=== PATIENT | female | born 1965 | race Caucasian/White ===

== ENCOUNTER 2017-05-08 14:22 | Emergency (ER) | payer SELFPAY ==
[~2017-05-08] VITALS: Ht 172.7 cm; Wt 70.0 kg
[2017-05-08 15:13] VITALS: BP 105/51; PULSE 95; RESP 22; TEMP 98.1; O2SAT 100
[2017-05-08 16:06] LABS: BASOPHIL % 0.1 % (0.0-2.0); HEMATOCRIT 37.8 % (35.0-46.0); HEMOGLOBIN 12.8 GM/DL (11.6-15.3); LYMPH % 4.1 % (9.0-44.0); LYMPHOCYTE # 0.6 TH/MM3 (1.0-4.8); MEAN CELL VOLUME 82.2 FL (80.0-100.0); MEAN CORPUSCULAR HEMOGLOBIN 27.8 PG (27.0-34.0); MEAN CORPUSCULAR HGB CONC 33.8 % (32.0-36.0); MEAN PLATELET VOLUME 8.8 FL (7.0-11.0); MONOCYTE # 0.9 TH/MM3 (0-0.9); NEUT % 89.8 % (16.0-70.0); PLATELET COUNT 197 TH/MM3 (150-450); RED CELL DISTRIBUTION WIDTH 13.7 % (11.6-17.2); WHITE BLOOD COUNT 15.6 TH/MM3 (4.0-11.0)
[2017-05-08 16:13] LABS: PROTHROMBIN TIME - PATIENT 10.5 SEC (9.8-11.6)
[2017-05-08 16:14] LABS: BICARBONATE 27.1 MEQ/L (21.0-32.0); CREATININE 0.81 MG/DL (0.50-1.00)
--- NOTE | 2017-05-08 16:26 | RADRPT ---
EXAM DATE/TIME: 05/08/2017 15:41 [facility] COMPARISON: No previous studies available for comparison. INDICATIONS : Left leg pain. MEDICAL HISTORY : None. SURGICAL HISTORY : None. ENCOUNTER: Initial ACUITY: 1 week PAIN SCORE: 6/10 LOCATION: Left leg. TECHNIQUE: Venous ultrasound of the leg was performed from the inguinal ligament to the proximal calf. Real-jose e, color Doppler and spectral tracing, compression and augmentation techniques were used. FINDINGS: There is normal compressibility of the deep venous system from the inguinal region to the proximal ca lf. No echogenic clot is seen in the lumen of the common femoral, femoral, popliteal, and posterior tibial veins. There is a normal response of the venous system to proximal and distal augmentation an d respiration. CONCLUSION: No evidence of left lower extremity DVT. Roldan Morgan MD on May 08, 2017 at 16:25 Board Certified Radiologist. This report was verified electronically.
[2017-05-08] MEDS ORDERED: SODIUM CHLORIDE 0.9% FLUSH 10 ML FLUSH IV FLUSH PRN (18:15)
[2017-05-08] MEDS ORDERED: ceFAZolin 2 GM PREMIX 50 ML IV ONE (18:15)
[2017-05-08] MEDS ORDERED: MORPHINE SULFATE 4 MG/ML INJ IV PUSH ONE (18:15)
--- NOTE | 2017-05-08 18:17 | PD ---
HPI Chief Complaint: Injury Time Seen by Provider: 17:33 Travel History International Travel<30 days: No Contact w/Intl Traveler<30days: No Traveled to known affect area: No History of Present Illness HPI 51-year-old female presents emergency department with painful red left knee which has progressed over the past 2 days. Patient denies significant injury, but states he bumped it perhaps 2 days ago. Patient has history of injury to the left knee years ago requiring open reduction and fixation with screws still present. Patient is unable to ambulate on the joint at this time. She denies significant fever or chills. Patient's pain is 9 out of 10. It is worse with any movement or ambulation. Patient denies any drug allergies. PFSH Past Medical History ?: Not Menopausal: Yes Social History Alcohol Use: No Tobacco Use: No Allergies-Medications (Allergen,Severity, Reaction): Coded Allergies: No Known Allergies (Verified Allergy, Severe, 05/08/17) Uncoded Allergies: NKA (Allergy, Unknown, 11/07/02) RN (Allergy, Unknown, 11/07/02) Reported Meds & Prescriptions Reported Meds & Active Scripts Active No Active Prescriptions or Reported Medications Review of Systems Except as stated in HPI: all other systems reviewed are Neg General / Constitutional: No: Fever, Chills Eyes: No: Visual changes HENT: No: Headaches Cardiovascular: No: Chest Pain or Discomfort Respiratory: No: Shortness of Breath Gastrointestinal: No: Abdominal Pain Genitourinary: No: Dysuria Musculoskeletal: Positive: Arthralgias, Limited ROM, Pain (See history of present illness.) Skin: No Rash Neurologic: No: Weakness Psychiatric: No: Depression Endocrine: No: Polydipsia Hematologic/Lymphatic: No: Easy Bruising Physical Exam Narrative GENERAL: Patient appears in mild distress per SKIN: Warm and dry. Normal color. Normal turgor. Patient has a 3 cm diameter area of tender warm erythema over the anterior tibia. There is no significant swelling or effusion. There is no sign of abscess or lymphangitis. HEAD: Atraumatic. Normocephalic. EYES: Pupils equal and round. No scleral icterus. No injection or drainage. ENT: No nasal bleeding or discharge. Mucous membranes pink and moist. Pharynx is clear. Airways patent NECK: Trachea midline. Supple and nontender. CARDIOVASCULAR: Regular rate and rhythm. RESPIRATORY: No accessory muscle use. Clear to auscultation. Breath sounds equal bilaterally. MUSCULOSKELETAL: Extremities without clubbing, cyanosis, or edema. No obvious deformities. Left knee appears normal without significant effusion. There is a well-healed anterior incision, and bump over the anterior lateral patella which appears old. Range of motion is severely limited secondary to pain. NEUROLOGICAL: Awake and alert. No obvious cranial nerve deficits. Motor grossly within normal limits. Five out of 5 muscle strength in the arms and legs. Normal speech. PSYCHIATRIC: Appropriate mood and affect; insight and judgment normal. Data Data Last Documented VS Vital Signs Date Time Temp Pulse Resp B/P (MAP) Pulse Ox O2 Delivery O2 Flow Rate FiO2 05/08/17 18:40 97 Nasal Cannula 2.00 05/08/17 18:40 87 18 111/71 (84) 05/08/17 15:13 98.1 Orders Orders Basic Metabolic Panel (Bmp) (05/08/17 15:18) Complete Blood Count With Diff (05/08/17 15:18) Prothrombin Time / Inr (Pt) (05/08/17 15:18) Act Partial Throm Time (Ptt) (05/08/17 15:18) Us Leg Venous Doppler (05/08/17 15:18) Blood Culture (05/08/17 18:13) Iv Access Insert/Monitor (05/08/17 18:13) Ecg Monitoring (05/08/17 18:13) Oximetry (05/08/17 18:13) Morphine Inj (Morphine Inj) (05/08/17 18:15) Sodium Chloride 0.9% Flush (Ns Flush) (05/08/17 18:15) Cefazolin 2 Gm Premix (Ancef 2 Gm Premix (05/08/17 18:15) C-Reactive Protein (Crp) (05/08/17 18:13) Knee, Complete (4vws) (05/08/17 18:13) Labs Laboratory Tests Test 05/08/17 15:30 White Blood Count 15.6 TH/MM3 Red Blood Count 4.60 MIL/MM3 Hemoglobin 12.8 GM/DL Hematocrit 37.8 % Mean Corpuscular Volume 82.2 FL Mean Corpuscular Hemoglobin 27.8 PG Mean Corpuscular Hemoglobin Concent 33.8 % Red Cell Distribution Width 13.7 % Platelet Count 197 TH/MM3 Mean Platelet Volume 8.8 FL Neutrophils (%) (Auto) 89.8 % Lymphocytes (%) (Auto) 4.1 % Monocytes (%) (Auto) 6.0 % Eosinophils (%) (Auto) 0.0 % Basophils (%) (Auto) 0.1 % Neutrophils # (Auto) 14.0 TH/MM3 Lymphocytes # (Auto) 0.6 TH/MM3 Monocytes # (Auto) 0.9 TH/MM3 Eosinophils # (Auto) 0.0 TH/MM3 Basophils # (Auto) 0.0 TH/MM3 CBC Comment DIFF FINAL Differential Comment Prothrombin Time 10.5 SEC Prothromb Time International Ratio 1.0 RATIO Activated Partial Thromboplast Time 26.1 SEC Blood Urea Nitrogen 10 MG/DL Creatinine 0.81 MG/DL Random Glucose 105 MG/DL Calcium Level 9.0 MG/DL Sodium Level 137 MEQ/L Potassium Level 3.7 MEQ/L Chloride Level 103 MEQ/L Carbon Dioxide Level 27.1 MEQ/L Anion Gap 7 MEQ/L Estimat Glomerular Filtration Rate 75 ML/MIN [facility] Medical Decision Making Medical Screen Exam Complete: Yes Emergency Medical Condition: Yes Medical Record Reviewed: Yes Differential Diagnosis Cellulitis. Left knee pain. Possible infected bone hardware. Osteomyelitis. Septic joint. Narrative Course Patient appears medically stable at time of exam. Ultrasound ordered in triage is negative for any signs of DVT. Labs ordered including CBC, CMP, coagulation studies, CRP, and blood cultures. Vital signs show the patient to be afebrile and not tachycardic. CBC shows leukocytosis of 15.6. Coagulation studies are unremarkable. Chemistries are unremarkable. X-ray of the left knee is ordered. 2 g Ancef IV as ordered. 2 mg morphine ordered IV. 1900 hrs., care of the patient is turned over to Ricardo Oreilly PA-C for final disposition. Scripts No Active Prescriptions or Reported Meds Condition: Stable Troy Leavitt May 08, 2017 18:17
[2017-05-08 18:40] VITALS: BP 111/71; PULSE 87; RESP 18; O2SAT 97; O2SAT 99
[2017-05-08 19:18] LABS: C-REACTIVE PROTEIN 2.8 MG/DL (0.00-0.30)
--- NOTE | 2017-05-08 19:36 | PD ---
Data Data Last Documented VS Vital Signs Date Time Temp Pulse Resp B/P (MAP) Pulse Ox O2 Delivery O2 Flow Rate FiO2 05/08/17 18:40 97 Nasal Cannula 2.00 05/08/17 18:40 87 18 111/71 (84) 05/08/17 15:13 98.1 Orders Orders Basic Metabolic Panel (Bmp) (05/08/17 15:18) Complete Blood Count With Diff (05/08/17 15:18) Prothrombin Time / Inr (Pt) (05/08/17 15:18) Act Partial Throm Time (Ptt) (05/08/17 15:18) Us Leg Venous Doppler (05/08/17 15:18) Blood Culture (05/08/17 18:13) Iv Access Insert/Monitor (05/08/17 18:13) Ecg Monitoring (05/08/17 18:13) Oximetry (05/08/17 18:13) Morphine Inj (Morphine Inj) (05/08/17 18:15) Sodium Chloride 0.9% Flush (Ns Flush) (05/08/17 18:15) Cefazolin 2 Gm Premix (Ancef 2 Gm Premix (05/08/17 18:15) Knee, Complete (4vws) (05/08/17 18:13) C-Reactive Protein (Crp) (05/08/17 15:30) Clindamycin (Cleocin) (05/08/17 19:45) Labs Laboratory Tests Test 05/08/17 15:30 White Blood Count 15.6 TH/MM3 Red Blood Count 4.60 MIL/MM3 Hemoglobin 12.8 GM/DL Hematocrit 37.8 % Mean Corpuscular Volume 82.2 FL Mean Corpuscular Hemoglobin 27.8 PG Mean Corpuscular Hemoglobin Concent 33.8 % Red Cell Distribution Width 13.7 % Platelet Count 197 TH/MM3 Mean Platelet Volume 8.8 FL Neutrophils (%) (Auto) 89.8 % Lymphocytes (%) (Auto) 4.1 % Monocytes (%) (Auto) 6.0 % Eosinophils (%) (Auto) 0.0 % Basophils (%) (Auto) 0.1 % Neutrophils # (Auto) 14.0 TH/MM3 Lymphocytes # (Auto) 0.6 TH/MM3 Monocytes # (Auto) 0.9 TH/MM3 Eosinophils # (Auto) 0.0 TH/MM3 Basophils # (Auto) 0.0 TH/MM3 CBC Comment DIFF FINAL Differential Comment Prothrombin Time 10.5 SEC Prothromb Time International Ratio 1.0 RATIO Activated Partial Thromboplast Time 26.1 SEC Blood Urea Nitrogen 10 MG/DL Creatinine 0.81 MG/DL Random Glucose 105 MG/DL Calcium Level 9.0 MG/DL Sodium Level 137 MEQ/L Potassium Level 3.7 MEQ/L Chloride Level 103 MEQ/L Carbon Dioxide Level 27.1 MEQ/L Anion Gap 7 MEQ/L Estimat Glomerular Filtration Rate 75 ML/MIN C-Reactive Protein 2.80 MG/DL [facility] Medical Record Reviewed: Yes Supervised Visit with YELENA: No Narrative Course Please see previous providers notes for complete history of present illness. This is a 51-year-old female who presents for evaluation of left anterior leg redness and pain. She reports that 5 days ago she hit her left leg against a chair. Since then she has had increasing pain just inferior to the left knee which is worse when walking. She reports history of left patellar fracture status post repair 15 years ago. Since then she has not had chronic stiffness and immobility of the left knee. On examination she has an 11 x 12 cm area of erythema just inferior to the left knee joint which is mildly tender to palpation. No open wounds. There is limited range of motion of the left knee which is chronic according to the patient and nonacute. The knee itself is not erythematous. There is some dry cracked skin noted to the left lower extremity. Lab work reveals WBC count of 15.6. CRP is 2.8. X-ray of the left knee reveals no acute normalities. Ultrasound is normal. Examined with my attending Dr. Rico who agrees with plan of care. The area of erythema was circled with a surgical marker. At this point time the plan will be to treat the patient as an outpatient with the understanding that she should return for any worsening symptoms. She is agreeable this plan. Earlier during the patient 's workup she received IV Ancef. A dose of clindamycin has been ordered for her. She will be discharged with Bactrim and Keflex. Diagnosis Primary Impression: Cellulitis of left leg Additional Instruction: Warm compresses several times a day 10-15 minutes at a time. Medication as prescribed. Return for new or worsening symptoms such as increasing redness, redness and swelling of the left knee, fevers. Med/Other Pt SpecificInfo: Prescription(s) given Scripts Cephalexin (Keflex) 500 Mg Cap 500 MG PO Q8H for Infection, #30 CAP 0 Refills Prov: Levon Rico MD 05/08/17 Sulfamethoxazole-Trimethoprim (Bactrim DS) 800-160 Mg Tab 1 TAB PO BID for Infection, #20 TAB 0 Refills Prov: Levon Rico MD 05/08/17 Disposition: 01 DISCHARGE HOME Condition: Stable Ricardo Oreilly May 08, 2017 19:36
--- NOTE | 2017-05-08 19:37 | RADRPT ---
EXAM DATE/TIME: 05/08/2017 18:53 [facility] COMPARISON: No previous studies available for comparison. INDICATIONS : Left knee pain after hitting a dresser one week ago. MEDICAL HISTORY : None. SURGICAL HISTORY : ORIF left patella. ENCOUNTER: Initial ACUITY: 1 week PAIN SCORE: 8/10 LOCATION: Left knee. FINDINGS: Previous fixation of the patella. Bones are osteopenic. No acute fractures identified the left CONCLUSION: 1. No acute fracture. Previous patellar fixation. Osmany Hamilton MD on May 08, 2017 at 19:35 Board Certified Radiologist. This report was verified electronically.
[2017-05-08] MEDS ORDERED: CEPH-460 PO (19:43)
[2017-05-08] MEDS ORDERED: BACT800T5 PO (19:43)
[2017-05-08] MEDS ORDERED: CLINDAMYCIN 150 MG CAP PO ONE (19:45)
[2017-05-08] MEDS ORDERED: WALKER WHEELS/F1 MIS (19:53)
== END 2017-05-08 20:28 | disposition home or self-care (01) ==
LOC: NEPD 14:22
DX: L03.116 Cellulitis of left lower limb (principal)
CPT/HCPCS: 73564; 80048; 85025; 85610; 85730; 86140; 87040; 93971; 96365; 96375; 99285; J0690; J2270